=== PATIENT | female | born 1980 | race Caucasian/White ===

== ENCOUNTER → 2021-01-18 | Outpatient (CLI) | payer OTHER ==
[~2021-01-18] MED LIST: METHACHOLINE KIT (J7674) INH ONE
--- NOTE | 2021-01-18 08:54 | PFTRPT ---
Site: [facility], [address] [place], [address] ID: [id number] Name: TREVON HAYS V Visit Date: 01/18/2021 Second ID: [id number] Referring Doctor: Cecille Loza MD Reviewing Doctor: Lukas Gomez MD Payroll Lead: Natasha JUAREZ RRT Age: 40 : 1980 Sex: Female Race: Height: 65.00 Inches Weight: 150.00 Lbs BSA: 1.75 Order IDs: [id number] Requested Test(s): <RESP-PFT.METH CHAL> Diagnosis: J45.99 of albuterol for post bronchodilator. Review Status: Not Reviewed Pre-Bronch Post-Bronch Pred Actual %Pred Actual %Chng SPIROMETRY FVC (L) 3.82 3.97 103 3.94 FEV1 (L) 3.11 3.21 103 3.08 -4 FEV1/FVC (%) 82 81 98 78 -3 FEF 25% (L/sec) 5.56 5.62 101 5.69 1 FEF 50% (L/sec) 4.20 3.89 92 3.16 -18 FEF 75% (L/sec) 1.66 1.48 88 1.13 -23 FEF 25-75% (L/sec) 3.18 3.14 98 2.71 -13 FEF Max (L/sec) 7.12 5.62 78 6.17 9 FIVC (L) 3.75 3.91 4 FIF 50% (L/sec) 3.85 3.54 91 3.98 12 FIF Max (L/sec) 4.40 4.26 -3 Expiratory Time (sec) 6.07 6.13 Back Extrap Vol (L) 0.15 0.10 -31 Time To FEFmax (sec) 0.164 0.101 -38
== END ==
LOC: M CARPUL 08:01
PROVIDERS: ATTEND Internal Medicine Pulmonary Disease
DX: J45.990 Exercise induced bronchospasm (principal)
CPT/HCPCS: 94070; J7674

== ENCOUNTER → 2021-03-06 | Outpatient (CLI) | payer OTHER | LOC: M WHC 13:48 | PROVIDERS: ATTEND Technician, Other | DX: Z12.31 Encounter for screening mammogram for malignant neoplasm of breast (principal) ==